=== PATIENT | female | born 1990 | race Caucasian/White ===

== ENCOUNTER 2023-04-04 09:09 | Emergency (ER) | payer OTHER ==
--- NOTE | 2023-04-04 09:15 | ED Physician Documentation ---
PD HPI LOWER EXT INJURY - Stated complaint Stated Complaint: LT FOOT PX,SWELLING - History obtained from History obtained from: Patient - History of Present Illness PD HPI LOW EXT INJURY LOCATION: Left, Foot Type of injury: Other (she is on feet all day at work, and carries heavy at times. No abrupt injury. Has onset and worsening of the pain. Marked pain the past 2 days to unable to walk/stand with any comfort.). No: Fall, Twist Where injury occurred: Work Timing - onset: How many days ago, How many weeks ago (some symptoms for weeks. Much worse the past 2-3 day.) Timing - details: Gradual onset, Still present Worsened by: Moving, Palpating, Other (walking and dorsiflexion passively of foot.) Associated symptoms: Swelling. No: Weakness, Numbness, Discolored Similar symptoms before: Has not had sx before Review of Systems Constitutional: denies: Fever, Chills Skin: denies: Rash, Laceration (s) Musculoskeletal: denies: Back pain PD PAST MEDICAL HISTORY - Past Medical History Cardiovascular: None Respiratory: None Musculoskeletal: None - Present Medications Home Medications: Ambulatory Orders Medication Instructions Recorded Confirmed Naproxen 500 mg PO BID 10 Days #20 tab 04/04/23 - Allergies Allergies/Adverse Reactions: Allergies Allergy/AdvReac Type Severity Reaction Status Date / Time No Known Drug Allergies Allergy Verified 04/04/23 09:29 PD ED PE NORMAL - Vitals Vital signs reviewed: Yes - General General: Alert and oriented X 3, No acute distress, Well developed/nourished - Derm Derm: Normal color, Warm and dry, No rash - Extremities Extremities: Other (left foot toward medial arch and distal to calcaneus has area of marked local tenderness with some local swelling but no sores/rash. No mass felt. pain with passive dorsiflexion. Not with plantar.) - Neuro Neuro: Alert and oriented X 3, No motor deficit, No sensory deficit Results - Vitals Vitals: Vital Signs - 24 hr 04/04/23 09:21 Temperature 36.3 C L Heart Rate 91 Respiratory 18 Rate Blood Pressure 137/75 H O2 Saturation 100 Oxygen O2 Source Room air - Rads (name of study) left foot Relevant Findings:: Prelim report reviewed, EMP independent interpretation of test (no spurs, fractures, nor bony abnormal. ), See rad report PD Medical Decision Making - ED course Complexity details: reviewed results, considered differential (seems like plantar fasciitis. Can treat with NSAIDs, some pain meds, crutches for partial weight, and firm soled shoe.), d/w patient ED course: I offered local steroid injection, since such a tender local area in particular. She defers for if not improved with durrent meds. Departure - Departure Disposition: 01 Home, Self Care Clinical Impression: Plantar fasciitis of left foot Condition: Stable Record reviewed to determine appropriate education?: Yes Instructions: ED Plantar Fasciitis Follow-Up: [facility] [Provider Group] Prescriptions: Naproxen 500 mg PO BID 10 Days #20 tab Comments: Your x-ray is normal without any signs of bony abnormality or spurs. Clinically this seems like inflammation of the fascia on the bottom of the foot (plantar fasciitis). Treatment for this is less pressure and stretch on the plantar fascia. Initially go with crutches for partial to no weightbearing for several days to week as needed. You will also want a heel pad/heel cup that you can get at the store to support under the heel just a bit in order to change the ankle and tension on the bottom of the foot. Wear more comfortable shoes for now. Follow-up with your primary care in about 5 or 6 days to see how well it is improved and whether to resume more normal activity. If its been resistant to get better, other treatments can include local injection with a steroid type medicine, physical therapy, more prolonged inactivity etc. Forms: Activity restrictions Discharge Date/Time: 04/04/23 10:06
[2023-04-04 09:29] VITALS: BP 137/75
[2023-04-04] MEDS ORDERED: ACETAMINOPHEN 325 MG TABLET PO STA (09:36)
[2023-04-04] MEDS ORDERED: IBUPROFEN 600 MG TABLET PO STA (09:36)
--- NOTE | 2023-04-04 09:54 | XRAY Report ---
PROCEDURE: Foot 3 View LT INDICATIONS: plantar pain for 3-4 days, increasing TECHNIQUE: 3 views of the foot were acquired. COMPARISON: None. FINDINGS: Bones: No fractures or dislocations. No suspicious bony lesions. Soft tissues: No suspicious soft tissue calcifications or masses. IMPRESSION: No visualized acute fracture or dislocation. However, occult injury cannot be excluded. Recommend dez rt interval imaging follow-up in 7-10 days as clinically indicated for additional evaluation. Reviewed by: Lurdes Powell MD on 04/04/2023 9:53 AM PDT Approved by: Lurdes Powell MD on 04/04/2023 9:53 AM PDT Station ID: [id number]
== END 2023-04-04 10:06 | disposition home or self-care (01) ==
LOC: ED 09:09
DX: M72.2 Plantar fascial fibromatosis (principal)
CPT/HCPCS: 73630; 99283; 99284; A9270